=== PATIENT | male | born 1995 | race Two or more races ===

== ENCOUNTER 2024-07-22 15:52 | Emergency (ER) | payer MEDICAID, SELFPAY ==
[2024-07-22 16:10] VITALS: BP 122/79; PULSE 70; RESP 19; TEMP 37.2; O2SAT 99; BMI 31.1
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
[2024-07-22] MEDS: ONDANSETRON ODT 4 MG TABRAP PO (17:12)
[2024-07-22] MEDS: HYDROcodone/APAP 5/325 TABLET 1 TAB PO (17:12)
[2024-07-22] MEDS: IBUPROFEN TAB 400 MG TABLET 800 MG PO (17:12)
== END 2024-07-22 17:31 | disposition home or self-care (01) ==
PROVIDERS: Emergency Provider Emergency Medicine; PCP Family Medicine
DX: T23.201A Burn of second degree of right hand, unspecified site, initial encounter (principal); T31.0 Burns involving less than 10% of body surface; X10.2XXA Contact with fats and cooking oils, initial encounter
CPT/HCPCS: 99283; Q0162; A9270